=== PATIENT | female | born 1995 | race Caucasian/White ===

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

== ENCOUNTER 2017-03-19 07:28 | Observation (INO) | payer BC, OTHER ==
[2017-03-19] MEDS ORDERED: NS 1,000 ML IV ONE ×2 (08:12→10:23)
[2017-03-19] MEDS ORDERED: HYDROmorphONE/DILAUDID 1 MG/ML INJ IVP ONE ×2 (08:12→10:04)
[2017-03-19] MEDS ORDERED: ONDANSETRON 4 MG/2 ML VIAL IVP ONE (08:12)
[2017-03-19] MEDS ORDERED: ONDANSETRON 4 MG/2 ML VIAL ONE ×2 (08:13→16:51)
[2017-03-19] MEDS ORDERED: HYDROmorphONE/DILAUDID 1 MG/ML INJ ONE (08:13)
--- NOTE | 2017-03-19 08:14 | EDPHY ---
H & P Stated Complaint: Epigastric pain w/vom and diarrhea Time Seen by Provider: 03/19/17 08:08 HPI/ROS: CHIEF COMPLAINT: Abdominal pain HISTORY OF PRESENT ILLNESS: The patient is a 21-year-old female who comes to the emergency department complaining of right lower quadrant abdominal pain. She states that yesterday she felt fatigued and lightheaded but did not have any pain. This morning around 3:00 a.m. she began having periumbilical pain that is now in right lower quadrant. No fever. She did vomit once and has had 1 episode of diarrhea nonbloody. No fever. No history of abdominal surgeries. She denies risk . No vaginal or urinary symptoms. REVIEW OF SYSTEMS: Constitutional: denies: chills, fever, recent illness, recent injury EENTM: denies: blurred vision, double vision, nose congestion Respiratory: denies: cough, shortness of breath Cardiac: denies: chest pain, irregular heart rate, lightheadedness, palpitations Gastrointestinal/Abdominal: See HPI Genitourinary: denies: dysuria, frequency, hematuria, pain Musculoskeletal: denies: joint pain, muscle pain Skin: denies: lesions, rash, jaundice, bruising Neurological: denies: headache, numbness, paresthesia, tingling, dizziness, weakness Hematologic/Lymphatic: denies: blood clots, easy bleeding, easy bruising Immunologic/allergic: denies: HIV/AIDS, transplant EXAM: GENERAL: Well-appearing, well-nourished and in no acute distress. HEAD: Atraumatic, normocephalic. EYES: Pupils equal round and reactive to light, extraocular movements intact, sclera anicteric, conjunctiva are normal. ENT: TMs normal, nares patent, oropharynx clear without exudates. Moist mucous membranes. NECK: Normal range of motion, supple without lymphadenopathy or JVD. LUNGS: Breath sounds clear to auscultation bilaterally and equal. No wheezes rales or rhonchi. HEART: Regular rate and rhythm without murmurs, rubs or gallops. ABDOMEN: Right lower quadrant tenderness and guarding BACK: No CVA tenderness, no spinal tenderness, step-offs or deformities EXTREMITIES: Normal range of motion, no pitting or edema. No clubbing or cyanosis. NEUROLOGICAL: Cranial nerves II through XII grossly intact. Normal speech, normal gait. 5/5 strength, normal movement in all extremities, normal sensation PSYCH: Normal mood, normal affect. SKIN: Warm, dry, normal turgor, no visible rashes or lesions. Source: Patient Exam Limitations: No limitations - Personal History LMP (Females 10-55): 15-21 Days Ago Current Tetanus Diphtheria and Acellular Pertussis (TDAP): Yes - Medical/Surgical History Hx Asthma: No Hx Chronic Respiratory Disease: No Hx Diabetes: No Hx Cardiac Disease: No Hx Renal Disease: No Hx Cirrhosis: No Hx Alcoholism: No - Family History Significant Family History: No pertinent family hx - Social History Smoking Status: Never smoked Alcohol Use: Sober Drug Use: None Constitutional: Initial Vital Signs Temperature (C) 36.5 C 03/19/17 07:30 Heart Rate 87 03/19/17 07:30 Respiratory Rate 18 03/19/17 07:30 Blood Pressure 118/70 03/19/17 07:30 O2 Sat (%) 99 03/19/17 07:30 O2 Delivery Mode Room Air Allergies/Adverse Reactions: No Known Allergies Allergy (Unverified 03/19/17 07:39) Home Medications: Medication Instructions Recorded Acetaminophen [Tylenol 325mg (*)] 1,000 mg PO Q8H 14 Days tab 03/19/17 HYDROmorphone HCL [Dilaudid 2 mg 2 mg PO Q4H #10 tab 03/19/17 (*)] Ketorolac Tromethamine 10 mg PO Q6H #16 tab 03/19/17 Norethindrone AC-Eth Estradiol 1 each PO HS 03/19/17 [Junel 1 mg-20 Mcg Tablet] Medical Decision Making - Diagnostics Imaging Results: Imaging Impressions Abdomen CT 03/19/17 08:12 Impression: 1. Mild enlarged and hyperemic appendix is noted. This could support a clinical diagnosis of acute appendicitis. 2. Query constipation with associated sacralization of distal small bowel. 3. Possible mesenteric adenitis. 4. Right ovarian cyst with associated fluid noted in the dependent portion of the cul-de-sac. I have reviewed this examination with Dr. Malagon. Results called and discussed with SEHRIE CHAU M.D. on 03/19/2017 at 10:01 Imaging: Discussed imaging studies w/ smash piecer Radiologist ED Course/Re-evaluation: 10:[address] the patient's CT scan is ambiguous. She does have her ovarian cyst however she is tender to palpation and has an elevated white blood cell count both of which would argue more towards appendicitis. I have consulted Dr. Pretty who will consult. Dr. Pretty feels the patient has appendicitis and will take her to the operating room. Differential Diagnosis: Partial list of the Differential diagnosis considered include but were not limited to; appendicitis, ovarian cyst, ovarian torsion and although unlikely based on the history and physical exam, I also considered , kidney stone, obstruction, biliary disease. - Data Points Laboratory Results: Laboratory Results 03/19/17 08:15 03/19/17 08:15 03/19/17 03/19/17 03/19/17 08:40 08:15 08:15 WBC RBC Hgb Hct MCV MCH MCHC RDW Plt Count MPV Neut % (Auto) Lymph % (Auto) [place] % (Auto) Eos % (Auto) Baso % (Auto) Nucleat RBC Rel Count Absolute Neuts (auto) Absolute Lymphs (auto) Absolute Monos (auto) Absolute Eos (auto) Absolute Basos (auto) Absolute Nucleated RBC Immature Gran % Immature Gran # Sodium 140 mEq/L mEq/L (134-144) Potassium 4.3 mEq/L mEq/L (3.5-5.2) Chloride 107 mEq/L mEq/L (97-110) Carbon Dioxide 20 mEq/l L mEq/l (22-31) Anion Gap 13 mEq/L mEq/L (8-16) BUN 13 mg/dL mg/dL (7-23) Creatinine 0.7 mg/dL mg/dL (0.6-1.0) Estimated GFR > 60 Glucose 96 mg/dL mg/dL (70-100) Calcium 9.8 mg/dL mg/dL (8.5-10.4) Total Bilirubin 0.2 mg/dL mg/dL (0.1-1.4) Conjugated Bilirubin 0.1 mg/dL mg/dL (0.0-0.5) Unconjugated Bilirubin 0.1 mg/dL mg/dL (0.0-1.1) AST 22 IU/L IU/L (14-46) ALT 28 IU/L IU/L (9-52) Alkaline Phosphatase 48 IU/L IU/L (38-126) Total Protein 6.9 g/dL g/dL (6.3-8.2) Albumin 4.3 g/dL g/dL (3.5-5.0) Lipase 36 IU/L IU/L (23-300) Beta HCG, Qual NEGATIVE Urine Color YELLOW Urine Appearance CLEAR Urine pH 5.0 (5.0-7.5) Ur Specific [place] 1.020 (1.002-1.030) Urine Protein NEGATIVE (NEGATIVE) Urine Ketones NEGATIVE (NEGATIVE) Urine Blood NEGATIVE (NEGATIVE) Urine Nitrate NEGATIVE (NEGATIVE) Urine Bilirubin NEGATIVE (NEGATIVE) Urine Urobilinogen NEGATIVE EU EU (0.2-1.0) Ur Leukocyte Esterase NEGATIVE (NEGATIVE) Urine RBC 1-3 /hpf /hpf (0-3) Urine WBC 1-3 /hpf /hpf (0-3) Ur Epithelial Cells TRACE /lpf /lpf (NONE-1+) Urine Mucus TRACE /lpf /lpf (NONE-1+) Urine Glucose NEGATIVE (NEGATIVE) 03/19/17 08:15 WBC 16.54 10^3/uL H 10^3/uL (3.80-9.50) RBC 4.87 10^6/uL 10^6/uL (4.18-5.33) Hgb 14.5 g/dL g/dL (12.6-16.3) Hct 40.9 % % (38.0-47.0) MCV 84.0 fL fL (81.5-99.8) MCH 29.8 pg pg (27.9-34.1) MCHC 35.5 g/dL g/dL (32.4-36.7) RDW 12.4 % % (11.5-15.2) Plt Count 275 10^3/uL 10^3/uL (150-400) MPV 9.9 fL fL (8.7-11.7) Neut % (Auto) 84.3 % H % (39.3-74.2) Lymph % (Auto) 10.6 % L % (15.0-45.0) Florence % (Auto) 4.2 % L % (4.5-13.0) Eos % (Auto) 0.2 % L % (0.6-7.6) Baso % (Auto) 0.3 % % (0.3-1.7) Nucleat RBC Rel Count 0.0 % % (0.0-0.2) Absolute Neuts (auto) 13.95 10^3/uL H 10^3/uL (1.70-6.50) Absolute Lymphs (auto) 1.75 10^3/uL 10^3/uL (1.00-3.00) Absolute Monos (auto) 0.69 10^3/uL 10^3/uL (0.30-0.80) Absolute Eos (auto) 0.03 10^3/uL 10^3/uL (0.03-0.40) Absolute Basos (auto) 0.05 10^3/uL 10^3/uL (0.02-0.10) Absolute Nucleated RBC 0.00 10^3/uL 10^3/uL (0-0.01) Immature Gran % 0.4 % % (0.0-1.1) Immature Gran # 0.07 10^3/uL 10^3/uL (0.00-0.10) Sodium Potassium Chloride Carbon Dioxide Anion Gap BUN Creatinine Estimated GFR Glucose Calcium Total Bilirubin Conjugated Bilirubin Unconjugated Bilirubin AST ALT Alkaline Phosphatase Total Protein Albumin Lipase Beta HCG, Qual Urine Color Urine Appearance Urine pH Ur Specific [place] Urine Protein Urine Ketones Urine Blood Urine Nitrate Urine Bilirubin Urine Urobilinogen Ur Leukocyte Esterase Urine RBC Urine WBC Ur Epithelial Cells Urine Mucus Urine Glucose Medications Given: Fentanyl (Sublimaze) 50 mcg IVP Q10M [facility] Stop: 03/29/17 14:14 Last Admin: 03/19/17 14:13 Dose: 50 mcg Discontinued Medications Ertapenem (Invanz) 1 gm IVP EDNOW ONE PRN Reason: Protocol Stop: 03/19/17 10:24 Last Admin: 03/19/17 10:45 Dose: 1 gm Hydromorphone HCl (Dilaudid) 0.5 mg IVP EDNOW ONE Stop: 03/19/17 08:13 Last Admin: 03/19/17 08:17 Dose: 0.5 mg Hydromorphone HCl (Dilaudid) 0.5 mg IVP EDNOW ONE Stop: 03/19/17 10:05 Last Admin: 03/19/17 10:06 Dose: 0.5 mg Sodium Chloride (Ns) 1,000 mls @ 0 mls/hr IV EDNOW ONE; Wide Open PRN Reason: Protocol Stop: 03/19/17 08:13 Last Admin: 03/19/17 08:16 Dose: 1,000 mls Sodium Chloride (Ns) 1,000 mls @ 0 mls/hr IV EDNOW ONE; Wide Open PRN Reason: Protocol Stop: 03/19/17 10:24 Last Admin: 03/19/17 10:45 Dose: 1,000 mls Ondansetron HCl (Zofran) 4 mg IVP EDNOW ONE Stop: 03/19/17 08:13 Last Admin: 03/19/17 08:17 Dose: 4 mg Departure - Departure Disposition: [facility] In[facility] Acute Clinical Impression: Acute appendicitis Qualifiers: Acute appendicitis type: with localized peritonitis Qualified Code(s): K35.3 - Acute appendicitis with localized peritonitis Condition: Good
[2017-03-19 08:23] LABS: % IMMATURE GRANULYOCYTES 0.4 % (0.0-1.1); ABSOLUTE IMMATURE GRANULOCYTES 0.07 10^3/uL (0.00-0.10); ADD DIFF? NO; ADD MORPH? NO; ADD SCAN? NO; ATYPICAL LYMPHOCYTE FLAG 0 (0-99); FRAGMENT RBC FLAG 0 (0-99); HEMATOCRIT 40.9 % (38.0-47.0); HEMOGLOBIN 14.5 g/dL (12.6-16.3); LEFT SHIFT FLG 0 (0-99); LIPEMIA HEMOLYSIS FLAG 90 (0-99); MEAN CELL HEMOGLOBIN 29.8 pg (27.9-34.1); MEAN CELL HEMOGLOBIN CONCENTR. 35.5 g/dL (32.4-36.7); MEAN PLATELET VOLUME 9.9 fL (8.7-11.7); PLATELET CLUMPS FLAG 0 (0-99); PLATELET COUNT 275 10^3/uL (150-400); RED BLOOD CELL COUNT 4.87 10^6/uL (4.18-5.33); RED CELL DISTRIBUTION WIDTH 12.4 % (11.5-15.2)
[2017-03-19 08:41] LABS: ALANINE AMINOTRANSFERASE 28 IU/L (9-52); ALBUMIN 4.3 g/dL (3.5-5.0); ALKALINE PHOSPHATASE 48 IU/L (38-126); ANION GAP 13 mEq/L (8-16); ASPARTATE AMINOTRANSFERASE 22 IU/L (14-46); BILIRUBIN,TOTAL 0.2 mg/dL (0.1-1.4); BILIRUBIN-CONJUGATED 0.1 mg/dL (0.0-0.5); BILIRUBIN-UNCONJUGATED 0.1 mg/dL (0.0-1.1); CALCIUM 9.8 mg/dL (8.5-10.4); CARBON DIOXIDE 20 mEq/l (22-31); CHLORIDE 107 mEq/L (97-110); CREATININE 0.7 mg/dL (0.6-1.0); GLOMERULAR FILTRATION RATE > 60; GLUCOSE 96 mg/dL (70-100); POTASSIUM 4.3 mEq/L (3.5-5.2); SODIUM 140 mEq/L (134-144); TOTAL PROTEIN 6.9 g/dL (6.3-8.2)
[2017-03-19] MEDS ORDERED: IOPAMIDOL (ISOVUE-300) 100 ML BTL ONE (08:41)
[2017-03-19 08:50] LABS: COLOR YELLOW; LEUKOCYTE ESTERASE,URINE NEGATIVE (NEGATIVE); NITRITE,URINE NEGATIVE (NEGATIVE)
[2017-03-19 08:52] LABS: MUCUS TRACE /lpf (NONE-1+)
[2017-03-19] MEDS ORDERED: ERTAPENEM 1 GM VIAL IVP ONE (10:23)
[2017-03-19] MEDS ORDERED: LR 1,000 ML IV ONE (11:50)
[2017-03-19] MEDS ORDERED: HYDROmorphONE/DILAUDID 1 MG/ML INJ IVP PRN (13:05)
[2017-03-19] MEDS ORDERED: ONDANSETRON 4 MG/2 ML VIAL IVP PRN ×2 (13:05→17:37)
[2017-03-19] MEDS ORDERED: LR 1,000 ML IV SCH (13:30)
--- NOTE | 2017-03-19 13:36 | GHP ---
[f rep st] PREOP HISTORY AND PHYSICAL DATE OF ADMISSION: 03/19/2017 ADMITTING DIAGNOSIS: Acute appendicitis. HISTORY: Ramona is a 21-year-old female had dinner Sunday night and did not feel well afterwards. She attributed it to anxiety. She slept on off that night. She complained of feeling dehydrated and weak. For breakfast, she was minimally hungry but did force herself to eat something. She had more of an appetite for lunch and did eat more food. At dinner, she was not hungry. She had a loose bowel movement that day without change in her symptoms. She slept on and off overnight. At 3:00 am she awoke up with severe epigastric pain. She moved her bowels without improvement. The pain woke her up at 5:30 am this morning. She moved her bowels with no change in her abdominal pain. At 6:00 am she drank water and promptly vomited. She then came to the ER. She is hungry now. She has had an upper respiratory tract infection and sore throat in the past 2 weeks. There is no history of antecedent diarrhea (before today) . She has not had any antibiotic use or travel outside the [place]. She has had no prior similar symptoms. She has had no prior abdominal surgery. There is no history of inflammatory bowel disease. SOCIAL HISTORY: She is a nonsmoker. She drinks on a rare occasion. ALLERGIES: She has no known drug allergies. MEDICATIONS: She takes oral contraceptives. PAST SURGICAL HISTORY: Her surgeries have been limited to myringotomy tubes and wisdom tooth extraction. PAST MEDICAL HISTORY: There is no history of rheumatic fever, tuberculosis, hepatitis, or transfusions. REVIEW OF SYSTEMS: She has decreased hearing. She is cross-eyed and wears glasses. Her last menstrual period ended on March 08. Her beta HCG is negative. There no limits on her activities and no history of steroid use in the last 6 months. PHYSICAL EXAMINATION: GENERAL: She is awake, pleasant, and alert. She is oriented to person, place, and time. NECK: There is no cervical, supraclavicular, axillary or inguinal lymphadenopathy. There are no carotid bruits. Thyroid is not enlarged. LUNGS: Clear to auscultation. CARDIAC: Shows S1, S2 to be normal. ABDOMEN: With cough, her pain is 2-3/10 approximately 2 fingerbreadths inferior and 1 fingerbreadth medial to McBurney's point. She has hypoactive bowel sounds. Psoas sign is positive. Obturator sign is negative. To palpation , her right upper quadrant is 1 on a scale of 1-10, mid left quadrant is 2, left lower quadrant is 3, epigastrium is 1, periumbilical regions is 4, suprapubic area is 4, right upper quadrant is 1, right mid abdomen is 8, right lower quadrant is 10. LABORATORY DATA: White count is 16,500 with 84% segs, hematocrit 40, platelet count is 275. As mentioned above, her beta HCG is negative. Her sodium is 140 , potassium is 4.3, her glucose is 96. Specific gravity is 1.020. Her CT scan does show evidence of enteric adenitis, it shows this 2 cm right ovarian cyst. Her appendix is hyperemic and mildly enlarged with some periappendiceal stranding. IMPRESSION: I feel strongly that this is appendicitis. I have suggested to the patient and her father that we proceed with laparoscopic evaluation and appendectomy. They understand the risks of not proceeding and the problems associated with a laparoscopic approach (bowel injury and adhesions). The agree to an appendectomy. /[id number]/MODL MTDD
[2017-03-19] MEDS: fentaNYL 100 MCG/2 ML INJ IVP SCH ×2 (14:13→16:06)
[2017-03-19] MEDS ORDERED: ceFAZolin 1 GM/5 ML SYR ONE (15:59)
[2017-03-19] MEDS ORDERED: HEPARIN 5,000 UNIT/0.5 ML SYR ONE (16:00)
--- NOTE | 2017-03-19 16:12 | PDANEPAE ---
ANE History of Present Illness Patient presents for lap appendectomy ANE Past Medical History - Pulmonary History Hx Sleep Apnea: No - Endocrine History Hx Diabetes: No ANE Review of Systems Review of Systems: ANE Patient History - Allergies Allergies/Adverse Reactions: No Known Allergies Allergy (Unverified 03/19/17 07:39) - Home Medications Home medications: home medication list seen and reviewed Home Medications: Norethindrone AC-Eth Estradiol [Junel 1 mg-20 Mcg Tablet] 1 each PO HS 03/19/17 [Last Taken 03/18/17] - NPO status NPO Status: no food or drink >8 hours NPO Since - Liquids (Date): 03/19/17 NPO Since - Liquids (Time): 05:30 NPO Since - Solids (Date): 03/18/17 NPO Since - Solids (Time): 22:00 - Anes Hx Anes Hx: no prior problems - Smoking Hx Smoking Status: Never smoked - Alcohol Use Alcohol Use: Sober ANE Labs/Vital Signs - Labs Result Diagrams: 03/19/17 08:15 03/19/17 08:15 - Vital Signs Blood Pressure: 127/75 Heart Rate: 90 Respiratory Rate: 16 O2 Sat (%): 98 Height: 154.94 cm Weight: 56.699 kg ANE Physical Exam - Airway Neck exam: FROM Mallampati Score: Class 1 - Pulmonary Pulmonary: no respiratory distress - Cardiovascular Cardiovascular: regular rate and rhythym - ASA Status ASA Status: I ANE Anesthesia Plan Anesthesia Plan: general endotracheal anesthesia (RBA discussed, counseled about the risks of metal earring and nose ring and electrocautery. Patient agrees to proceed. )
[2017-03-19] MEDS ORDERED: PROPOFOL 200 MG/20 ML VIAL ONE (16:16)
[2017-03-19] MEDS ORDERED: PROPOFOL/EMULSION 500 MG/50 ML BOTTLE IV ONE (16:16)
[2017-03-19] MEDS ORDERED: fentaNYL 100 MCG/2 ML INJ ONE ×4 (16:16→18:20)
[2017-03-19] MEDS ORDERED: DEXAMETHASONE 4 MG/ML VIAL ONE (16:51)
[2017-03-19] MEDS ORDERED: ROCURONIUM 50 MG/5 ML VIAL ONE (16:51)
[2017-03-19] MEDS ORDERED: KETOROLAC 30 MG/1 ML SDV ONE (17:00)
[2017-03-19] MEDS ORDERED: LR 500 ML IV PRN (17:37)
[2017-03-19] MEDS ORDERED: NALOXONE HCL 0.4 MG/ML INJ IVP PRN (17:37)
[2017-03-19] MEDS ORDERED: PROMETHAZINE HCL 25 MG/ML INJ IVP PRN (17:37)
--- NOTE | 2017-03-19 17:58 | POSTANESTH ---
Post Anesthetic Evaluation Cardiovascular Status: Similar to Pre-Op Cond Respiratory Status: Similar to Pre-op Cond. Level of Consciousness/Mental Status: Can Participate in Eval Pain Control: Adequate, Prn Tx Ordered, Inadeq, Add Tx Required Nausea/Vomiting Control: Adequate, Prn Tx Ordered Complications Possibly Related to Anesthesia: None Noted (TREATING PAIN. Otherwise well.)
[2017-03-19] MEDS: fentaNYL 100 MCG/2 ML INJ IVP PRN ×4 (17:59→18:45)
--- NOTE | 2017-03-19 18:02 | POSTOPPROG ---
Post Op Note Date of Operation: 03/19/17 Surgeon: Tex Pretty Anesthesia: GET(General Endotracheal) Pre-op Diagnosis: acute appendicitis with mesenteric adenitis Post-op Diagnosis: acute unruptured appendicitis with mesenteric adenitis Indication: acute appendicitis with mesenteric adenitis Procedure: laparoscopic appendectomy Findings: acute unruptured appendicitis with mesenteric adenitis Inf/Abcess present in the surg proc area at time of surgery?: No EBL: Minimal Total fluids administered: 1200cc Complications: none Specimen(s): appendix
[2017-03-19] MEDS: KETOROLAC 15 MG/1 ML SDV IVP SCH ×2 (19:14→23:47)
[2017-03-19] MEDS: ACETAMINOPHEN 500 MG TAB PO SCH ×2 (19:15→21:22)
[2017-03-19 20:18] VITALS: RESP 16
[2017-03-19] MEDS ORDERED: NORETHINDRONE AC ETH ESTRADIOL PO SCH (21:00)
--- NOTE | 2017-03-20 05:35 | GOP ---
[f rep st] OPERATIVE REPORT DATE OF OPERATION: 03/19/2017 SURGEON: Tex Pretty MD ANESTHESIA: General endotracheal. PREOPERATIVE DIAGNOSIS: Acute appendicitis with mesenteric adenitis. POSTOPERATIVE DIAGNOSIS: Acute unruptured appendicitis with mesenteric adenitis. PROCEDURE PERFORMED: Laparoscopic appendectomy. FINDINGS: Acute unruptured appendicitis with mesenteric adenitis. SPECIMENS: Appendix. ESTIMATED BLOOD LOSS: Minimal. INDICATIONS: Acute appendicitis and mesenteric adenitis. DESCRIPTION OF PROCEDURE: The patient is placed on the operating table in the supine position. After induction of adequate general endotracheal anesthesia, the abdomen is carefully clipped, prepped, and draped. A surgical time-out is carried out and agreed to by all members of the operative team. A transverse suprapubic 5 mm incision and an oblique left lower quadrant 5 mm incision were both made sharply and deepened with Bovie electrocautery. A curvilinear incision is made at the inferior umbilical fold. This is deepened to expose the rectus sheath. The rectus sheath is elevated on either side of the midline with Allis clamps. The rectus sheath is now incised in the midline. A pursestring of #0 PDS is placed in the rectus sheath. The peritoneum is entered. An 11-12 mm disposable Roc trocar is positioned. Intraabdominal insufflation is carried out to 15 mmHg. On inspection with the laparoscope, there is some translucent, slightly yellowish fluid in the pelvis. There is no obvious purulence. A 5 mm port is placed in the left lower quadrant incision and a 5 mm port is placed in the suprapubic incision. Photographic documentation of both ovaries and the uterus is carried out. There is no evidence of an inguinal hernias. The appendix is easily identified and elevated with the mesoappendix. Mesoappendix is divided down to the base on the cecum with the Harmonic scalpel. The cecum is mobilized. A 45 mm powered Endo-RACHELE stapler with a vascular load is used to transect the cecum so that the cuff is taken with the appendix. The appendix is placed in an EndoCatch bag and delivered via the umbilical port site. There is a small amount of bleeding at the lateral border of the staple line. This is elevated with a right angle clamp and secured with an Endoloop. The small bowel is now run for a distance of 3 feet. Mesenteric adenitis is identified. Photographic documentation is undertaken. There is no evidence of a Meckel's diverticulum. Irrigation is again carried out with heparin and Ancef-containing irrigant. Ports are removed under direct vision. The fascial defect in the infraumbilical area is elevated and a simple suture is placed [id number] at the midpoint of the incision. The pursestring is tied first. The interrupted suture is now tied. This resulted in excellent closure. Hemostasis is excellent. Subcutaneous tissue is well irrigated. The skin is closed at all sites with inverted simple sutures of #4-0 Vicryl. Dermabond is used on the skin. The patient is transferred to the recovery room in stable and satisfactory condition. TOTAL FLUIDS: 1200 cc. COMPLICATIONS: None. /[id number]/MODL MTDD
[2017-03-20 06:02] VITALS: TEMP 98.2
--- NOTE | 2017-03-20 09:40 | SOAPPROG ---
SOAP Progress Note Assessment/Plan: Assessment/Plan: 21 Y F s/p lap appy. Doing well. D/c to home. Discussed limitations, meds, and follow up. Pt not needing notes for school. S: eating. pain controlled. no n/v. O: alert, nad ctab rrr abd softly bloated, inc cdi, +BS 03/20/17 09:39 Objective: Vital Signs Temp Pulse Resp BP Pulse Ox 36.8 C 83 16 94/49 L 97 03/20/17 06:01 03/20/17 06:01 03/19/17 22:20 03/20/17 06:01 03/20/17 06:52 03/19/17 03/20/17 03/21/17 05:59 05:59 05:59 Intake Total 4010 Output Total 1305 Balance 2705 ICD10 Worksheet Patient Problems: Problems Problem Status Onset Acute appendicitis Acute
[2017-03-20 11:12] VITALS: BP 103/53; PULSE 81; O2SAT 96
[2017-03-20] MEDS: KETOROLAC 15 MG/1 ML SDV IVP SCH (12:10)
[2017-03-20] MEDS: ACETAMINOPHEN 500 MG TAB PO SCH (14:04)
== END 2017-03-20 14:10 | disposition home or self-care (01) ==
LOC: FOB 20:31
PROVIDERS: ADMIT Surgery; ATTEND Surgery
PROC: 0DTJ4ZZ Resection of Appendix, Percutaneous Endoscopic Approach (ICD-10-PCS; principal; 2017-03-19 16:28)
DX: K35.80 Unspecified acute appendicitis (principal); I88.0 Nonspecific mesenteric lymphadenitis; N83.201 Unspecified ovarian cyst, right side
CPT/HCPCS: 44970; 74177; G0378; 96374; J1100; J1170; J1335; J1885; J2405; J2704; J3010; Q9967